=== PATIENT | male | born 1950 | race Caucasian/White ===

== ENCOUNTER → 2018-09-28 | Outpatient (CLI) | payer MEDICARE | END | disposition home or self-care (01) | LOC: CVU 09:23 | PROVIDERS: ATTEND Internal Medicine Cardiovascular Disease | DX: I08.8 Other rheumatic multiple valve diseases (principal); I10 Essential (primary) hypertension; E78.5 Hyperlipidemia, unspecified; Z87.891 Personal history of nicotine dependence; I48.91 Unspecified atrial fibrillation; Z95.0 Presence of cardiac pacemaker | CPT/HCPCS: 93306 ==

== ENCOUNTER 2020-11-05 09:18 | Observation (INO) | payer MEDICARE ==
[~2020-11-05] VITALS: Ht 175.3 cm; Wt 100.9 kg
[2020-11-05 09:52] VITALS: BP 147/98
[2020-11-05] MEDS ORDERED: MIDAZOLAM 1 MG/ML, 2ML ONE (09:54)
[2020-11-05] MEDS ORDERED: LIDOCAINE 2%, 20ML ONE (09:55)
[2020-11-05] MEDS ORDERED: FENTANYL PF 100 MCG/2ML ONE (09:55)
[2020-11-05] MEDS ORDERED: CEFAZOLIN PMX 1GM/50ML 50 ML ONE (09:55)
[2020-11-05] MEDS ORDERED: CEFAZOLIN 1,000 MG ONE (09:55)
[2020-11-05] MEDS ORDERED: SODIUM CHLORIDE 0.9% 1,000 ML IV SCH (10:00)
[2020-11-05] MEDS ORDERED: ATOR20TA37 PO (10:00)
[2020-11-05] MEDS ORDERED: LISI2.5T PO (10:00)
[2020-11-05] MEDS ORDERED: MELA3TAB62 PO (10:00)
[2020-11-05] MEDS ORDERED: SOTA80TA PO (10:00)
[2020-11-05] MEDS ORDERED: ASPI-963 PO (10:00)
[2020-11-05 10:15] LABS: BASOPHILS % (AUTO) 1 % (0-1); EOSINOPHILS % (AUTO) 3 % (1-7); LYMPHOCYTES % (AUTO) 33 % (22-44); MEAN CORPUSCULAR HEMOGLOBIN 32.9 pg (27.5-34.5); MEAN CORPUSCULAR HGB CONC 34.4 g/dL (33.2-36.2); MEAN PLATELET VOLUME 8.4 fL (7.4-10.4); MONOCYTES % (AUTO) 10 % (2-9); NEUTROPHILS % (AUTO) 54 % (42-75); PLATELET COUNT 193 x10^3/uL (130-400); RED BLOOD COUNT 4.39 x10^6/uL (4.38-5.82); RED CELL DISTRIBUTION WIDTH 12.9 % (9.4-14.8)
[2020-11-05] MEDS ORDERED: MELATONIN 3 MG PO PRN (11:00)
[2020-11-05] MEDS ORDERED: Hold all anticoagulants for 24 hours MC PRN (11:00)
[2020-11-05] MEDS ORDERED: KEFLEX PO (11:23)
[2020-11-05] MEDS ORDERED: SODIUM CHLORIDE FLUSH 10ML SYR IVF SCH (21:00)
[2020-11-05] MEDS ORDERED: ATORVASTATIN 20 MG TABLET PO SCH (21:00)
[2020-11-05] MEDS ORDERED: TEMPLATE NON-FORMULARY MED. (Lisinopril** 2.5 MG) PO SCH (21:00)
[2020-11-06] MEDS ORDERED: SOTALOL 80MG TABLET PO SCH (09:00)
[2020-11-06] MEDS ORDERED: ASPIRIN 81 MG TABLET EC PO SCH (09:00)
== END 2020-11-05 12:39 | disposition home or self-care (01) ==
LOC: CACL 09:18 → ORIP 10:43
PROVIDERS: ADMIT Psychiatry & Neurology Psychiatry; ATTEND Internal Medicine Cardiovascular Disease
DX: T82.111A Breakdown (mechanical) of cardiac pulse generator (battery), initial encounter (principal); I47.2 Ventricular tachycardia; I42.8 Other cardiomyopathies; I48.91 Unspecified atrial fibrillation; I10 Essential (primary) hypertension; E11.9 Type 2 diabetes mellitus without complications; Z79.82 Long term (current) use of aspirin; Z79.899 Other long term (current) drug therapy; Z95.810 Presence of automatic (implantable) cardiac defibrillator; Z87.891 Personal history of nicotine dependence
CPT/HCPCS: 33228; 36415; 85025; 99156; C1785; G0378; J0690; J2250; J3010; J3490